=== PATIENT | male | born 1980 | race Caucasian/White ===

== ENCOUNTER 2019-10-19 13:14 | Emergency (ER) | payer OTHER, SELFPAY ==
--- NOTE | ~2019-10-19 | CT_ITS ---
EXAMINATION: CT pelvis w con INDICATION: Penis and suprapubic swelling TECHNIQUE: Computed tomographic images of the pelvis were obtained after the administration of 100 cc of Omnipaque 350 intravenous contrast. The dose-length product (DLP) was 1589.96 mGy-cm. Automated e xposure control and iterative reconstruction technique were employed. COMPARISON: None FINDINGS: There is questionable mild inflammatory change of the penis which is encircled by the dustin s throughout its length. No abnormal fluid collection is identified. There are no pathologically enla rged pelvic lymph nodes. The pelvic viscera are normal. There is a small fat-containing hernia. Sever e spondylosis is noted at L5-S1. There are no dilated loops of bowel. No free intraperitoneal gas is identified. IMPRESSION: 1. Possible mild inflammation of the penis without evidence of abscess. Reviewed, dictated and finalized at location A.
[2019-10-19 13:17] VITALS: BP 159/112; PULSE 109; RESP 20; TEMP 36.4; O2SAT 99
--- NOTE | 2019-10-19 13:36 | ED.GENADULT ---
HPI - General Adult General Chief complaint: Unspecified Stated complaint: genital pain/swelling Time Seen by Provider: 10/19/19 13:27 Source: patient Mode of arrival: ambulatory Limitations: no limitations History of Present Illness HPI narrative: A 39 y/o male presents to the ED with c/o penile swelling and redness. Pt states that the penile swelling and redness started 2 weeks ago and has progressively worsened since. He notes that he has a PMHx of Cellulitis and adds that this feels similar. Pt has seen by BINA Ovalle who sent him home with a triple antibiotic ointment. He reports that he had been using a cream on his penis prior to the triple antibiotic ointment, but is unsure the name. Pt started using the triple antibiotic ointment 3 days ago and uses it 1-2 times per day. He complains of penile pain, but denies fever, chills, sweats, dysuria, hematuria, and N/V. complaint: Penile swelling and redness Onset (ago): week(s) (2) Location: genitals (penis) Severity: similar to prior episodes Pain Consistency: constant and other (worsening) Associated symptoms: other (penile pain) Treatments prior to arrival: other (triple antibiotic ointment) Related Data Home Medications Medication Instructions Recorded Confirmed hydrocodone-acetaminophen 10 - 325 tablet PO BID PRN 10/19/19 10/19/19 Allergies Allergy/AdvReac Type Severity Reaction Status Date / Time No Known Allergies Allergy Verified 10/19/19 13:21 Review of Systems Review of Systems: All systems reviewed & are unremarkable except as noted in HPI and below Constitutional: Constitutional: Denies chills, Denies fever(s) and Denies other (sweats) Gastrointestinal: Gastrointestinal: Denies nausea and Denies vomiting Genitourinary: Genitourinary: Denies hematuria, Reports genital pain (penile) and Denies dysuria Integumentary/Breasts: Skin/Breast: Reports swelling (penile) and Reports erythema (penile) PMFSH Past Medical History Medical History (Updated 10/19/19 @ 16:34 by Iqra Sawyer MD) Anxiety Back injury Bilateral ankle fractures Bulging discs Cellulitis Depression Diabetes mellitus HTN (hypertension) Jaw fracture Nose fracture Obstructive sleep apnea Peripheral neuropathy Sleep apnea Surgical History Surgical History No history of previous surgery Social History Social History Smoking packs per day: 2 Smoking cigarettes per day: 40.0 Years smoked: 17 Smoking pack-years: 34.00 Smoking status: Current every day smoker Gender identity (if verbalized by the patient): Male Exam Const: General: cooperative, alert and uncomfortable Nutritional Appearance: obese morbidly obese Orientation/consciousness: patient oriented x3 Limitations: no limitations HENMT: Mouth: Yes lip normal and Yes moist mucous membranes Resp: Effort & Inspection: normal respiratory effort Auscultation: clear to auscultation bilaterally Cardio: Rate: regular rate Rhythm: regular rhythm GI: GI Palp: Yes Soft to palpation and No Tenderness to palpation present (GI) Auscultation: normal bowel sounds : Male General Exam: Yes other (follicular erythema and swelling of the suprapubic region) Penis: Yes Localized penile swelling present (around head of penis and upper scrotum) Skin: General skin exam: normal color Neuro: General: patient oriented x3 Cognition (Neuro): normal cognition Speech: normal speech Extrem: General: normal to inspection, full ROM and no clubbing, cyanosis or edema Psych: Mental Status: mental status grossly normal Affect: normal affect Attitude: cooperative Course Course Emergency Course: Patient with penile cellulitis and history of diabetes. Patient without any findings to suggest abscess or Abram's gangrene on imaging and exam is of low concern for this at this time as well. Patient pain improved after sanket
[2019-10-19 14:13] LABS: Add Urine Microscopic? YES; Appearance Urine Clear (Clear); Bacteria Urine Trace /hpf; Bilirubin Urine Negative (Negative); Blood Urine 1+ (Negative); Color Urine Straw (Yellow); Glucose Urine UA 3+ mg/dL (Negative); Ketones Urine Negative (Negative); Leukocyte Esterase Ur Trace LEU/UL (Negative); Nitrate Urine Negative (Negative); Protein Urine 2+ mg/dL (Negative); Squamous Epithelial Cell Urine Rare /hpf (Few); Urobilinogen Urine Negative mg/dL (<2.0); WBC Urine 0-3 /hpf
[2019-10-19 14:14] LABS: Specific Grav Ur 1.037 (1.001-1.035)
[2019-10-19 14:15] LABS: Basophils Absolute Auto 0.1 K/mm3 (0.0-0.1); Basophils Percent Auto 0.6 % (0.2-1.2); Eosinophils Absolute Auto 0.2 K/mm3 (0-0.3); Eosinophils Percent Auto 1.3 % (0-4.4); Hematocrit 51.5 % (42.0-52.0); Hemoglobin 17.8 g/dL (14.0-18.0); Immature Granulocyte Absolute 0.08 K/mm3 (0.00-0.031); Immature Granulocyte Percent A 0.6 % (0-0.5); Lymphocytes Absolute Auto 2.74 K/mm3 (0.9-3.2); Lymphocytes Percent Auto 20.3 % (18.3-44.2); Mean Corpuscular HGB Conc 34.6 g/dl (32-36); Mean Corpuscular Hemoglobin 30.5 pg (26-34); Mean Corpuscular Volume 88.2 fl (80-100); Mean Platelet Volume 12.5 fl (7.4-10.4); Monocytes Absolute Auto 0.8 K/mm3 (0.1-0.6); Monocytes Percent Auto 6.2 % (2.6-8.5); Neutrophils Absolute Auto 9.6 K/mm3 (1.3-6.7); Platelet Count Result 193 k/mm3 (150-375); Red Blood Count 5.84 M/mm3 (4.6-6.20); Red Cell Distribution Width 12.9 % (11.5-14.5); White Blood Count 13.5 K/mm3 (4.5-10.0)
[2019-10-19] MEDS: SODIUM CHLORIDE 0.9% IV 1,000 ML 999 ML IV CONT (14:21)
[2019-10-19 14:46] LABS: Alanine Aminotransferase 61 U/L (4-50); Albumin Level 4.3 g/dL (3.5-5.1); Alkaline Phosphatase 156 U/L (38-126); Aspartate Amino Transferase 47 U/L (17-59); Bilirubin,Total 0.5 mg/dL (0.2-1.3); Blood Urea Nitrogen 9 mg/dL (9-20); CRP 2.5 mg/dL (<1.0); Calcium 9.4 mg/dL (8.4-10.2); Carbon Dioxide 24 mmol/L (22-30); Chloride 99 mmol/L (98-107); Estimated CRCL calculation 254 ml/min; Estimated Glomerular Filt Rate > 60; Glucose 414 mg/dL (75-110); Potassium 4.4 mmol/L (3.4-5.0); Sodium 133 mmol/L (137-145)
[2019-10-19 14:50] LABS: Estimated CRCL calculation 299 ml/min; Estimated Glomerular Filt Rate > 60
[2019-10-19 16:56] VITALS: BP 135/91; PULSE 99; RESP 17; O2SAT 100
== END 2019-10-19 16:58 | disposition home or self-care (01) ==
PROVIDERS: Emergency Provider Emergency Medicine
DX: N48.22 Cellulitis of corpus cavernosum and penis (principal); I10 Essential (primary) hypertension; G47.33 Obstructive sleep apnea (adult) (pediatric); E11.42 Type 2 diabetes mellitus with diabetic polyneuropathy; F17.210 Nicotine dependence, cigarettes, uncomplicated
CPT/HCPCS: 36415; 72193; 80053; 81001; 85025; 86140; 87040; 87086; 96365; 96367; 96375; 99284; J0131; J0743; J3370; J7030; Q9967